=== PATIENT | male | born 1995 | race Caucasian/White ===

== ENCOUNTER 2017-10-02 23:20 | Emergency (ER) | payer SELFPAY ==
--- NOTE | 2017-10-02 23:47 | EDM.PDOC ---
ED HPI GENERAL MEDICAL PROBLEM - General Chief Complaint: Laceration Stated Complaint: LEG INJURY LACERATION Time Seen by Provider: 10/02/17 23:30 Source of Information: Reports: Patient, Family History Limitations: Reports: No Limitations - History of Present Illness INITIAL COMMENTS - FREE TEXT/NARRATIVE: This is a 22-year-old male. He states he dropped his knife it bounced off the bed and the point of the blade struck him in his left lower leg on the medial side of the tibia bone. He states that the wound started spurting blood and it put pressure on it and they come to the ER for evaluation. He states he is up-to -date with his tetanus. He denies any other acute symptoms. Left Lower Leg Pain Score (Numeric/FACES): 2 - Related Data Allergies Allergy/AdvReac Type Severity Reaction Status Date / Time No Known Allergies Allergy Verified 10/02/17 23:30 Home Meds: Home Meds . [No Known Home Meds] 10/02/17 [History] Past Medical History - Past Health History Medical/Surgical History: Denies Medical/Surgical History Social & Family History - Tobacco Use Smoking Status *Q: Never Smoker - Caffeine Use Caffeine Use: Reports: None - Recreational Drug Use Recreational Drug Use: No ED ROS GENERAL - Review of Systems Review Of Systems: See Below Constitutional: Denies: Fever, Chills HEENT: Reports: No Symptoms Respiratory: Reports: No Symptoms Cardiovascular: Reports: No Symptoms Endocrine: Reports: No Symptoms GI/Abdominal: Reports: No Symptoms : Reports: No Symptoms Musculoskeletal: Reports: Other (As per history of present illness) Skin: Reports: Other (As per history of present illness) Neurological: Reports: No Symptoms Psychiatric: Reports: No Symptoms Hematologic/Lymphatic: Reports: No Symptoms ED EXAM, SKIN/RASH Exam: See Below Exam Limited By: No Limitations General Appearance: Alert, WD/WN, No Apparent Distress Eye Exam: Bilateral Eye: Normal Inspection Ears: Normal External Exam Nose: Normal Inspection Throat/Mouth: Normal Inspection, Normal Lips, Normal Voice, No Airway Compromise Head: Normocephalic Neck: Supple Respiratory/Chest: No Respiratory Distress Back Exam: Full Range of Motion Extremities: Normal Range of Motion, Other (On the distal medial side of the left lower leg there is a 1 cm laceration noted with bleeding controlled, neurovascularly is intact distally.) Neurological: Alert, Oriented Psychiatric: Normal Affect, Normal Mood ED SKIN PROCEDURES - Laceration/Wound Repair Left Leg Lac/Wound length In cm: 1 Appearance: Subcutaneous, Linear, Clean Distal NVT: Neuro & Vascular Intact Anesthetic Type: Local Local Anesthesia - Lidocaine (Xylocaine): 1% Plain Local Anesthetic Volume: 4cc Skin Prep: Providone-Iodine (Betadine), Saline Exploration/Debridement/Repair: Explored to Base Suture Size: 4-0 # of Sutures: 3 Drain Placement: No Sterile Dressing Applied: Nurse Tetanus Status Addressed: Yes Complications: No Progress/Comments: Patient tolerated the procedure well Course - Vital Signs Last Recorded V/S: Last Vital Signs Temp 99.2 F 10/02/17 23:38 Pulse 91 10/02/17 23:38 Resp 20 10/02/17 23:38 BP 121/80 10/02/17 23:38 Pulse Ox 97 10/02/17 23:38 - Orders/Labs/Meds Orders: Active Orders 24 hr Category Date Time Status Tibia Fibula Lt [CR] Stat Exams 10/02/17 23:33 Taken Meds: Medications Discontinued Medications Generic Name Dose Route Start Last Admin Trade Name Freq PRN Reason Stop Dose Admin Lidocaine HCl 50 ml 10/03/17 01:01 10/03/17 01:01 Xylocaine 1% INJECT 10/03/17 01:02 50 ml ONETIME STA Administration Departure - Departure Time of Disposition: 01:11 Disposition: Home, Self-Care 01 Condition: Good Clinical Impression: Laceration of left lower leg Qualifiers: Encounter type: initial encounter Qualified Code(s): S81.812A - Laceration without foreign body, left lower leg, initial encounter - Discharge Information *PRESCRIPTION DRUG MONITORING PROGRAM REVIEWED*: Not Applicable *COPY OF PRESCRIPTION DRUG MONITORING REPORT IN PATIENT [facility]AW[facility]: Not Applicable Referrals: PCP,None [Primary Care Provider] - Forms: ED Department Discharge Additional Instructions: Keep the wound clean and dry and covered for the next 3-4 days, take Tylenol or ibuprofen as needed for soreness, watch for infection which would be redness swelling or any drainage, heavier sutures removed in 7 days by your family provider or you may return to the ER or walk-in clinic to have them removed, return to the ER as needed - My Orders Last 24 Hours: My Active Orders 10/02/17 23:33 Tibia Fibula Lt [CR] Stat - Assessment/Plan Last 24 Hours: My Active Orders 10/02/17 23:33 Tibia Fibula Lt [CR] Stat
[2017-10-03] MEDS ORDERED: Lidocaine 1% 50 ML MDV INJECT STA (01:01)
--- NOTE | 2017-10-04 10:51 | CR ---
Left tibia and fibula: AP and lateral views of the left tibia and fibula were obtained. Comparison: No prior study. No fracture or other bony abnormality is seen. No radiopaque foreign object is seen. Impression: 1. No abnormality is identified on two-view left tibia and fibula study. Diagnostic code #1
== END 2017-10-03 01:15 | disposition home or self-care (01) ==
LOC: JD.ED 23:20
DX: S81.812A Laceration without foreign body, left lower leg, initial encounter (principal); W26.0XXA Contact with knife, initial encounter
CPT/HCPCS: 12001; 73590-26-LT; 73590-LT; 99283; 99283-25